=== PATIENT | female | born 1975 | race Hispanic/Latino ===

== ENCOUNTER 2020-01-24 10:55 | Emergency (ER) | payer OTHER, MEDICAID ==
[~2020-01-24 10:55] MED LIST: Iopamidol-370 76% 500 ML 1 ML ONE
[2020-01-24 11:27] LABS: #Lymphocytes 2.7 thou/uL (1.20-3.40); #Monocytes 1.2 thou/uL (0.11-0.59); #Neutrophils 8.7 thou/uL (1.40-6.50); %Basophils 0.2 % (0.0-1.0); %Lymphocytes 21.8 % (21.0-51.0); %Monocytes 9.2 % (0.0-10.0); %Neutrophils 68.8 % (42.0-75.0); Hemoglobin 12.6 g/dL (12.0-16.0); Mean Corpuscular HGB CONC 32.3 g/dL (32.0-36.0); Mean Corpuscular Hemoglobin 28.8 pg (27.0-31.0); Mean Corpuscular Volume 89.4 fL (78.0-98.0); Mean Platelet Volume 7.5 fL (7.4-10.4); Platelet Count 258 thou/uL (130-400); RBC Distribution Width 12.5 % (11.5-14.5); Red Blood Cell (RBC) Count 4.36 mill/uL (4.20-5.40); White Blood Cell (WBC) Count 12.6 thou/uL (4.8-10.8)
[2020-01-24] MEDS ORDERED: Ketorolac Tromethamine 30 MG/ML VIAL ONE (11:40)
[2020-01-24] MEDS ORDERED: Aspirin 325 MG TAB ONE (11:41)
[2020-01-24 11:45] LABS: ALT (SGPT) 11 U/L (8-55); AST (SGOT) 13 U/L (5-34); Albumin 4.5 g/dL (3.5-5.0); Alkaline Phosphatase 84 U/L (40-110); Anion Gap 13 mmol/L (10-20); BUN (Urea Nitrogen) 9 mg/dL (7.0-18.7); Bilirubin, Total 0.8 mg/dL (0.2-1.2); CK (CPK) 48 U/L (29-168); Calc. Creatinine Clearance 0 mL/min (70-130); Calcium 9.8 mg/dL (7.8-10.44); Carbon Dioxide 28 mmol/L (22-29); Estimated GFR-MDRD 76; Globulin 3.7 g/dL (2.4-3.5); Glucose 97 mg/dL (70-105); Potassium 3.1 mmol/L (3.5-5.1); Protein, Total 8.2 g/dL (6.0-8.3); Sodium 140 mmol/L (136-145)
[2020-01-24 12:07] LABS: BHCG - Serum Negative (NEGATIVE); Pregs Control Bar Appear? YES (CONTROL BAR)
[2020-01-24 12:08] LABS: Pregs Control Background? CLEAR/WHITE (CLR/WHITE)
[2020-01-24 12:09] LABS: Chloride 102 mmol/L (98-107)
--- NOTE | 2020-01-24 13:18 | CT ---
CT ANGIOGRAM THORAX WITH IV CONTRAST AND 3-D RECONSTRUCTIONS CLINICAL INDICATION: Elevated d-dimer and chest pain. Shortness of breath. Symptoms of been present for 2 days. COMPARISON: None FINDINGS: Pulmonary arteries: No filling defects are seen in the pulmonary arteries to suggest a pulmonary embo yordan. Aorta: The aorta is normal in caliber without evidence of an aortic dissection. Lungs: Bibasilar linear and patchy parenchymal densities are seen. Findings are likely attributable t o bibasilar atelectasis. No pleural effusion is seen. Mediastinum: The heart is at the upper limits of normal to borderline enlarged, and there is a small pericardial effusion present. There is mild nonspecific prominence of a prevascular space lymph node which measures 9 mm in short axis dimension.. No enlarged lymph nodes are seen by CT size criter ia. Thyroid gland: Imaged thyroid gland has a grossly normal CT appearance. Osseous structures: No acute process. Chest wall: No abnormality visualized. Upper abdomen: Within normal limits for phase of imaging. IMPRESSION: 1. No CT evidence of a pulmonary embolus. 2. Borderline cardiomegaly with small pericardial effusion. 3. Bibasilar parenchymal densities most likely attributable to volume loss as opposed to pneumonia. 4 . Nonspecific mildly prominent prevascular space lymph nodes.
--- NOTE | 2020-01-24 13:47 | RAD ---
CHEST ONE VIEW: 01/24/20 INDICATION: History of chest pain and abnormal EKG. COMPARISON: None. FINDINGS: Heart size is accentuated by the exam technique. No consolidation, pleural effusion, or pneumothorax is evident. Pulmonary vasculature is within normal limits. No acute osseous abnormality is noted. IMPRESSION: No acute cardiopulmonary abnormality. POS: BH
--- NOTE | 2020-01-25 15:20 | EKG ---
Test Reason : Blood Pressure : / mmHG Vent. Rate : 083 BPM Atrial Rate : 083 BPM P-R Int : 160 ms QRS Dur : 084 ms QT Int : 378 ms P-R-T Axes : 063 027 036 degrees QTc Int : 444 ms Normal sinus rhythm Acute pericarditis Abnormal ECG Confirmed by HARRIS PALOMARES DO ([id number]), photographic editor TONEY ASL ([id number]) on 01/25/2020 3:20:21 PM Referred By: Confirmed By:HARRIS PALOMARES DO
== END 2020-01-24 14:14 | disposition home or self-care (01) ==
LOC: ERS 10:55
DX: R07.2 Precordial pain (principal); R06.02 Shortness of breath; Z20.828 Contact with and (suspected) exposure to other viral communicable diseases
CPT/HCPCS: 71045; 71275; 80053; 82550; 84484; 84703; 85025; 85379; 86140; 93005; 94760; 96374; J1885; Q9967